=== PATIENT | female | born 1960 | race Caucasian/White ===

== ENCOUNTER 2021-07-04 09:56 | Outpatient (REF) | payer OTHER, SELFPAY ==
--- NOTE | ~2021-07-04 | XR_ITS ---
EXAMINATION: XR CERVICAL SPINE XR THORACIC SPINE CLINICAL INFORMATION: Mid back pain and neck pain. COMPARISON: None TECHNIQUE: Cervical spine 5 views. Dorsal spine 3 views. FINDINGS: DORSAL SPINE: There is normal thoracic kyphosis. The vertebral heights, alignment and disc heights are normal. There is no visible acute fracture or dislocation seen. There is mild right lateral spondylosis. No lytic or sclerotic process seen. CERVICAL SPINE: There is mild straightening of cervical lordosis. The vertebral heights and alignment are normal. There is moderate bridging osteophytes C5-C6 disc level. Rest of the disc heights are normal. On oblique views the neural foramina are patent bilaterally. The prevertebral soft tissues are normal. XR/XR cervical spine w flex/ext IMPRESSION: Ventral bridging osteophytes C5-C6 disc level. No visible acute fracture, dislocation or subluxation seen. The neural foramina are patent. Unremarkable dorsal spine exam.
--- NOTE | ~2021-07-04 | XR_ITS ---
EXAMINATION: XR CERVICAL SPINE XR THORACIC SPINE CLINICAL INFORMATION: Mid back pain and neck pain. COMPARISON: None TECHNIQUE: Cervical spine 5 views. Dorsal spine 3 views. FINDINGS: DORSAL SPINE: There is normal thoracic kyphosis. The vertebral heights, alignment and disc heights are normal. There is no visible acute fracture or dislocation seen. There is mild right lateral spondylosis. No lytic or sclerotic process seen. CERVICAL SPINE: There is mild straightening of cervical lordosis. The vertebral heights and alignment are normal. There is moderate bridging osteophytes C5-C6 disc level. Rest of the disc heights are normal. On oblique views the neural foramina are patent bilaterally. The prevertebral soft tissues are normal. XR/XR thoracic spine 3V IMPRESSION: Ventral bridging osteophytes C5-C6 disc level. No visible acute fracture, dislocation or subluxation seen. The neural foramina are patent. Unremarkable dorsal spine exam.
== END 2021-07-04 09:57 | disposition home or self-care (01) ==
LOC: HO.XRAY 09:56
PROVIDERS: Visit Provider Nurse Practitioner Family
DX: M54.2 Cervicalgia (principal); M54.50 Low back pain, unspecified; M54.6 Pain in thoracic spine; S06.0X0A Concussion without loss of consciousness, initial encounter
CPT/HCPCS: 72052; 72072; 99202

== ENCOUNTER 2021-08-03 13:27 | Outpatient (REF) | payer OTHER, SELFPAY ==
--- NOTE | ~2021-08-03 | MR_ITS ---
EXAMINATION: MR CERVICAL SPINE WITHOUT CONTRAST CLINICAL INFORMATION: Neck pain. COMPARISON: Cervical spine radiographs 07/04/2021. TECHNIQUE: MRI of the cervical spine was obtained using routine sequences without contrast. FINDINGS: Alignment is normal. Vertebral heights are preserved. No acute bone marrow signal changes. There is slight loss of intervertebral disc height and T2 signal intensity at multiple levels related to disc degeneration. There is no cord compression or abnormal intramedullary signal changes. The cervicomedullary junction is normal. Limited visualization of the posterior fossa reveals ill-defined T2 signal hyperintensity within the central linda. The occipital condyles and lateral C1 masses are intact. Atlantodental joint is normal. C1-C2 articular facets are unremarkable. At C2-C3 the annular contour is normal. No canal or neuroforaminal compromise. At C3-C4 the annular contour is normal. No canal or neuroforaminal compromise. At C4-C5 the annular contour is normal. No canal or neuroforaminal compromise. At C5-C6 there is a shallow central protrusion causing indentation of the thecal sac. Moderate canal stenosis. Uncovertebral joint spurring and facet degenerative change causes mild bilateral neuroforaminal encroachment. At C6-C7 there is a slightly bulging disc. Mild canal stenosis. Minimal uncovertebral joint spurring. No substantial neuroforaminal encroachment. At C7-T1 the annular contour is normal. No canal stenosis. No neuroforaminal encroachment. Visualized soft tissues of the neck are normal. Vascular flow voids are grossly maintained. MR/MR cervical spine wo con IMPRESSION: There is disc degeneration at multiple levels within the cervical spine. A shallow left central protrusion at C5-C6 causes moderate canal stenosis and there is mild canal stenosis at C6-C7 primarily related to a bulging disc. No cord compression or abnormal intramedullary signal changes. Uncovertebral joint spurring and facet degenerative change causes mild bilateral neuroforaminal encroachment at C5-C6. Otherwise no neuroforaminal compromise.
== END 2021-08-03 13:28 | disposition home or self-care (01) ==
LOC: HO.MRI 13:27
PROVIDERS: Visit Provider Nurse Practitioner Family
DX: M54.2 Cervicalgia (principal)
CPT/HCPCS: 72141

== ENCOUNTER → 2021-08-21 08:53 | Outpatient (BNVA) | payer OTHER, SELFPAY | PROVIDERS: PCP Internal Medicine; Visit Provider Nurse Practitioner Family | DX: M54.50 Low back pain, unspecified (principal); M54.6 Pain in thoracic spine; M54.2 Cervicalgia | CPT/HCPCS: 99212 ==